=== PATIENT | male | born 1960 | race Caucasian/White ===

== ENCOUNTER 2020-05-15 13:36 | Emergency (ER) | payer OTHER ==
[2020-05-15 13:59] VITALS: BP 174/100; PULSE 76
[2020-05-15] MEDS ORDERED: Acetaminophen/oxyCODONE 325-5 MG Tab PO ONE (14:17)
--- NOTE | 2020-05-15 14:21 | EDM.PDOC ---
ED HPI GENERAL MEDICAL PROBLEM - General Chief Complaint: Upper Extremity Injury/Pain Stated Complaint: LEFT SHOULDER PAIN Time Seen by Provider: 05/15/20 14:13 Source of Information: Reports: Patient History Limitations: Reports: No Limitations - History of Present Illness INITIAL COMMENTS - FREE TEXT/NARRATIVE: 59-year-old male presents to the emergency department for evaluation of left shoulder pain. Patient states that he was trying to tighten lug knots using a lead not branch between 4 and 5 PM yesterday afternoon. He states that he felt a snap in his left shoulder while doing this. Since that time he been unable to utilize the left shoulder secondary to pain. He states that he cannot lift the arm at the shoulder. Denies any pain at the elbow or wrist. Reports chronic numbness in his left second, third and fourth digits. Denies any new weakness or loss of sensation secondary to this injury. Took a muscle relaxer last night without relief. Took ibuprofen at 11 AM today without relief. Denies any other injuries, symptoms or concerns. Onset Date: 05/14/20 Onset Time: 16:00 Duration: Constant Left Shoulder Pain Score (Numeric/FACES): 5 - Related Data Allergies Allergy/AdvReac Type Severity Reaction Status Date / Time No Known Allergies Allergy Verified 10/14/16 08:30 Home Meds: Home Meds Ibuprofen [Advil] 800 mg PO ASDIRECTED PRN 08/22/14 [History] Cyclobenzaprine [Flexeril] 10 mg PO Q6H PRN 05/15/20 [History] Losartan [Cozaar] 25 mg PO DAILY 05/15/20 [History] Metoprolol Succinate [Toprol XL 50mg] 50 mg PO DAILY 05/15/20 [History] Past Medical History HEENT History: Reports: Impaired Vision Other HEENT History: wears glasses Cardiovascular History: Reports: Hypertension Respiratory History: Reports: COPD Gastrointestinal History: Reports: Other (See Below) Other Gastrointestinal History: resection of small bowel Musculoskeletal History: Reports: Back Pain, Chronic, Other (See Below) Other Musculoskeletal History: 2 back surgeries with fusion of L4-5 Psychiatric History: Reports: Addiction Other Psychiatric History: tobacco - Infectious Disease History Infectious Disease History: Reports: Chicken Pox - Past Surgical History Neurological Surgical History: Reports: Lumbar Spine, Spinal Fusion Social & Family History - Family History Family Medical History: Noncontributory - Tobacco Use Smoking Status *Q: Current Every Day Smoker Years of Tobacco use: 40 Packs/Tins Daily: 1 - Caffeine Use Caffeine Use: Reports: None - Alcohol Use Days Per Week of Alcohol Use: 2 Number of Drinks Per Day: 6 Total Drinks Per Week: 12 - Recreational Drug Use Recreational Drug Use: Yes Recreational Drug Type: Reports: Marijuana/Hashish Recreational Drug Use Frequency: Rarely - Living Situation & Occupation Living situation: Reports: Review of Systems - Review of Systems Review Of Systems: Comprehensive ROS is negative, except as noted in HPI. ED EXAM, GENERAL - Physical Exam Exam: See Below Exam Limited By: No Limitations General Appearance: Alert, WD/WN, No Apparent Distress Head: Atraumatic, Normocephalic Neck: Normal Inspection, Supple, Non-Tender, Full Range of Motion Respiratory/Chest: No Respiratory Distress, Chest Non-Tender Cardiovascular: Normal Peripheral Pulses, Regular Rate, Rhythm, No Edema Peripheral Pulses: 2+: Radial (L), Radial (R) GI/Abdominal: Soft, Non-Tender Back Exam: Normal Inspection, Full Range of Motion Extremities: Other (Left shoulder tenderness to palpation. Limited range of motion in all 7 stages of the left shoulder secondary to pain. No gross deformity or step-off at left shoulder. Normal range of motion left elbow and left wrist.) Neurological: Alert, Normal Cognition, Normal Gait, No Motor/Sensory Deficits Psychiatric: Normal Affect Skin Exam: Warm, Dry, Intact Course - Vital Signs Last Recorded V/S: Last Vital Signs Temp 97.8 F 05/15/20 14:13 Pulse 76 05/15/20 14:13 Resp 16 05/15/20 14:13 BP 174/100 H 05/15/20 14:13 Pulse Ox 98 05/15/20 14:13 - Orders/Labs/Meds Orders: Active Orders 24 hr Category Date Time Status Shoulder Comp Lt [CR] Stat Exams 05/15/20 14:16 Taken DME for Discharge [COMM] Stat Oth 05/15/20 15:00 Ordered Meds: Medications Discontinued Medications Generic Name Dose Route Start Last Admin Trade Name Freq PRN Reason Stop Dose Admin Oxycodone/Acetaminophen 1 tab 05/15/20 14:17 05/15/20 14:38 Percocet 325-5 Mg PO 05/15/20 14:18 1 tab ONETIME ONE Administration - Radiology Interpretation Free Text/Narrative:: 3 views of the left shoulder were obtained Indication pain No fracture or dislocation Departure - Departure Time of Disposition: 15:00 Disposition: Home, Self-Care 01 Condition: Good Clinical Impression: Sprain of shoulder - Discharge Information Instructions: Shoulder Sprain Referrals: Bradley Mesa MD [Primary Care Provider] - Forms: ED Department Discharge Additional Instructions: 1. Wear sling for comfort and support. Be sure to gently range her shoulder frequently to decrease chance of frozen shoulder. 2. Motrin 400 mg every 6-8 hours for pain. Stop if any abdominal pain or rectal bleeding. 3. Percocet for severe pain as directed. Avoid medication if possible secondary to sedation, dependency, dry mouth and constipation. 4. Consider consultation with orthopedic surgery in the outpatient setting in 1 to 2 weeks. If seeing orthopedics in the [facility] recommend [facility] orthoped[facility] [place] which would close to your work. You can contact them to schedule an appointment at [phone]. If you choose to see orthopedics here in [place] recommend consultation with Dr. Osorio who can be reached at [phone] for scheduling. Sepsis Event Note (ED) - Evaluation Sepsis Screening Result: No Definite Risk - Focused Exam Vital Signs: Vital Signs Temp Pulse Resp BP Pulse Ox 05/15/20 14:13 97.8 F 76 16 174/100 H 98 05/15/20 13:54 97.8 F 76 16 174/100 H 98 - My Orders Last 24 Hours: My Active Orders 05/15/20 14:16 Shoulder Comp Lt [CR] Stat 05/15/20 15:00 DME for Discharge [COMM] Stat - Assessment/Plan Last 24 Hours: My Active Orders 05/15/20 14:16 Shoulder Comp Lt [CR] Stat 05/15/20 15:00 DME for Discharge [COMM] Stat Assessment:: 59-year-old male with left shoulder pain and limited functionality after atte mpting to remove lug nuts with a lug wrench yesterday around 4:56 PM. Neurovascularly intact in the upper extremity. No gross deformity. X-ray reveals no evidence of fracture or dislocation. Findings most consistent with a sprain of the shoulder and possible rotator cuff injury. Placed in a sling for comfort and advised to gently range shoulder several times throughout the day to decrease risk of frozen shoulder. Advised on use of ibuprofen. Advised on use of Percocet for severe pain. Recommend avoiding narcotic medication if possible. Given functional limitations recommend consultation in outpatient setting with orthopedics. Patient indicates that he lives in the [facility] area during the week and returns home here on weekends. Patient provided information for follow-up with [facility] orthopedic if choosing to do so while in the [facility] during the week and for Dr. Osorio if patient chooses to follow-up here in [place] on the weekend. Plan: 1. Wear sling for comfort. Ensure frequent episodes of mild range of motion of the shoulder to decrease frozen shoulder while wearing sling. 2. Motrin 400 mg every 6-8 hours for pain. 3. Percocet 1 tablet every 4-6 hours for severe pain. Avoid this medication if possible due to side effects. 4. Recommend consultation with orthopedic surgery. As you reside in the [facility] Saturday through consider [facility] orthopedics for convenience. If following up in [place] where he was a Saturday through Saturday consider Dr. Osorio.
--- NOTE | 2020-05-16 10:46 | CR ---
Shoulder Comp Lt CLINICAL HISTORY: Pain FINDINGS: There is no acute fracture or dislocation in the left shoulder. There is spurring at the AC joint. This may cause impingement On the rotator cuff. Articular surfaces are smooth Impression: Osteoarthritic change AC joint No fracture
== END 2020-05-15 15:27 | disposition home or self-care (01) ==
LOC: JP.ED 13:36
DX: S43.402A Unspecified sprain of left shoulder joint, initial encounter (principal); I10 Essential (primary) hypertension; J44.9 Chronic obstructive pulmonary disease, unspecified; F17.210 Nicotine dependence, cigarettes, uncomplicated; Z79.899 Other long term (current) drug therapy; X58.XXXA Exposure to other specified factors, initial encounter
CPT/HCPCS: 73030; 99283; A9270

== ENCOUNTER 2022-01-28 07:42 | Emergency (ER) | payer OTHER ==
[2022-01-28] MEDS ORDERED: Sodium Chloride 0.9% 10 ML Syringe FLUSH PRN ×2 (07:49→09:11)
[2022-01-28] MEDS ORDERED: HYDROmorphone 1 MG/ML Syringe IVPUSH ONE (07:49)
[2022-01-28] MEDS ORDERED: Losartan 25 MG Tab PO SCH (09:00)
[2022-01-28] MEDS ORDERED: Sodium Chloride 0.9% 50 ML IV ONE (09:11)
[2022-01-28] MEDS ORDERED: Iopamidol 612 MG/ML 100 ML Bottle IV PRN (09:11)
[2022-01-28] MEDS ORDERED: oxyCODONE 5 MG Tab PO ONE (10:34)
[2022-01-28] MEDS ORDERED: Hydrochlorothiazide 25 MG Tab PO ONE (10:34)
[2022-01-28 11:34] VITALS: BP 197/97; PULSE 56
== END 2022-01-28 11:35 | disposition home or self-care (01) ==
LOC: JP.ED 07:42
DX: M25.552 Pain in left hip (principal); K43.9 Ventral hernia without obstruction or gangrene; N28.9 Disorder of kidney and ureter, unspecified; E87.8 Other disorders of electrolyte and fluid balance, not elsewhere classified; I70.0 Atherosclerosis of aorta; M25.80 Other specified joint disorders, unspecified joint; J44.9 Chronic obstructive pulmonary disease, unspecified; I10 Essential (primary) hypertension; Z79.899 Other long term (current) drug therapy; Z72.0 Tobacco use
CPT/HCPCS: 36415; 73502-LT; 73700-LT; 74177; 80048; 81001; 85025; 85651; 86140; 96374; 99283; 99284-25; A9270-GY; J1170; J3490

== ENCOUNTER 2024-08-31 02:54 | Emergency (ER) | payer BC, OTHER ==
[2024-08-31 03:06] VITALS: PULSE 94
[2024-08-31 03:28] LABS: BASOPHILS ABSOLUTE AUTO 0.04 K/uL (0.00-0.10); BASOPHILS PERCENT AUTO 0.4 % (0.1-1.3); EOSINOPHILS ABSOLUTE AUTO 0.34 K/uL (0.00-0.40); EOSINOPHILS PERCENT AUTO 3.7 % (0.0-5.4); HEMATOCRIT 42.1 % (38.4-49.7); HEMOGLOBIN 14.9 g/dL (12.9-16.9); IMMATURE GRAN ABSOLUTE AUTO 0.04 K/uL (0.00-0.23); IMMATURE GRAN PERCENT AUTO 0.4 % (0.0-0.7); LYMPHOCYTES ABSOLUTE AUTO 0.94 K/uL (0.8-3.3); LYMPHOCYTES PERCENT AUTO 10.3 % (11.4-47.7); MEAN CORPUSCULAR HEMOGLOBIN 31.4 pg (31.6-35.5); MEAN CORPUSCULAR HGB CONC 35.4 g/dL (31.6-35.5); MEAN CORPUSCULAR VOLUME 88.8 fL (81.4-99.0); MONOCYTES ABSOLUTE AUTO 0.67 K/uL (0.20-0.90); MONOCYTES PERCENT AUTO 7.3 % (3.3-12.6); NEUTROPHILS ABSOLUTE AUTO 7.11 K/uL (1.0-7.6); NEUTROPHILS PERCENT AUTO 77.9 % (40.0-78.1); PLATELET COUNT,PLT 212 K/uL (130-375); RED BLOOD CELL COUNT 4.74 M/uL (4.14-5.76); WHITE BLOOD CELL COUNT,WBC 9.1 K/uL (3.2-11.0)
[2024-08-31] MEDS: Albuterol/Ipratropium 3.0-0.5 MG/3 ML Neb Soln NEB ONE (03:43)
[2024-08-31 03:49] LABS: C-REACTIVE PROTEIN 2.05 mg/dL (<0.50); CALCIUM 8.6 mg/dL (8.5-10.1); EST CRCL DRUG DOSING (CG) 82.99 mL/min; POTASSIUM,K 3.7 mmol/L (3.6-5.2); TROPONIN I HIGH SENSITIVITY 38.4 pg/mL (<=60.3)
[2024-08-31 03:51] LABS: LACTIC ACID 1.2 mmol/L (0.4-2.0)
[2024-08-31 03:52] LABS: ANION GAP 13.7 mmol/L (5.0-14.0)
[2024-08-31] MEDS ORDERED: methylPREDNISolone Sodium Succinate 125 MG/2 ML SDV IM ONE (04:20)
[2024-08-31 04:29] LABS: CORONAVIRUS COVID-19 NAA NEGATIVE (NEGATIVE); INFLUENZA A NAA NEGATIVE (NEGATIVE); INFLUENZA B NAA NEGATIVE (NEGATIVE); RESPIRATORY SYNCYTIAL VIR NAA NEGATIVE (NEGATIVE)
[2024-08-31 04:39] VITALS: BP 149/85
== END 2024-08-31 04:37 | disposition home or self-care (01) ==
LOC: JP.ED 02:54
DX: J18.9 Pneumonia, unspecified organism (principal); I10 Essential (primary) hypertension; J44.9 Chronic obstructive pulmonary disease, unspecified; F17.210 Nicotine dependence, cigarettes, uncomplicated; Z90.49 Acquired absence of other specified parts of digestive tract; Z88.5 Allergy status to narcotic agent; Z88.8 Allergy status to other drugs, medicaments and biological substances; Z79.899 Other long term (current) drug therapy
CPT/HCPCS: 0241U; 36415; 71045; 80048; 83605; 84145; 84484; 85025; 86140; 93005; 94640; 99285; J7620

== ENCOUNTER 2024-11-01 14:40 | Emergency (ER) | payer BC ==
[2024-11-01 15:07] VITALS: BP 153/86; PULSE 74
== END 2024-11-01 15:49 | disposition home or self-care (01) ==
LOC: JP.ED 14:40
DX: S61.011A Laceration without foreign body of right thumb without damage to nail, initial encounter (principal); I10 Essential (primary) hypertension; J44.9 Chronic obstructive pulmonary disease, unspecified; Z90.49 Acquired absence of other specified parts of digestive tract; Z88.5 Allergy status to narcotic agent; Z88.6 Allergy status to analgesic agent; Z79.899 Other long term (current) drug therapy; W45.8XXA Other foreign body or object entering through skin, initial encounter
CPT/HCPCS: 12001; 99282